=== PATIENT | female | born 1980 | race Caucasian/White ===

== ENCOUNTER 2019-11-07 18:26 | Emergency (ER) | payer SELFPAY ==
[~2019-11-07] VITALS: Ht 167.6 cm; Wt 49.9 kg
[2019-11-07] MEDS ORDERED: CALCIUM CHLOR(10%) 100MG/ML 10ML SYRINGE IV ONE (18:27)
[2019-11-07] MEDS ORDERED: ATROPINE SULF 1 MG/10ml SYR IV ONE (18:27)
[2019-11-07] MEDS ORDERED: DEXTROSE (50%) 50ML SYRG IV ONE (18:27)
[2019-11-07] MEDS ORDERED: EPINEPHrine HCL 1 MG/10 ML SYRG IV ONE (18:27)
[2019-11-07] MEDS ORDERED: NALOXONE HCL 1MG/ML 2ML SYRINGE IV ONE (18:27)
[2019-11-07] MEDS ORDERED: SODIUM BICARBONATE 8.4% INJ 50ML SYRINGE IV ONE (18:27)
[2019-11-07] MEDS ORDERED: LORazepam 2MG/ML-1ML VIAL IV ONE (18:45)
[2019-11-07] MEDS ORDERED: THIAMINE INJ 100 MG in SODIUM CHLORIDE 0.9% 1,000 ML IV ONE (18:45)
[2019-11-07 19:21] LABS: Basophils # (auto) 0 uL; Basophils % (auto) 0.1 % (0.0-2.0); Eosinophils # (auto) 0 uL; Eosinophils % (auto) 0.3 % (0.0-7.0); Hematocrit 49.2 % (36.0-46.0); Hemoglobin 15.5 g/dL (12.2-16.2); Lymphocytes # (auto) 0.4 uL; Lymphocytes % (auto) 17.1 % (10.0-50.0); Mean Corpuscular Hemoglobin 29.9 pg (28.0-32.0); Mean Corpuscular Hgb Conc. 31.4 g/dL (32.0-36.0); Monocytes # (auto) 0 uL; Monocytes % (auto) 1.1 % (0.0-12.0); Neutrophils # (auto) 2.1 uL; Neutrophils % (auto) 81.4 % (37.0-80.0); Nucleated Red Blood Cells % 0.3 %; Platelet Count (auto) 136 10^3/uL (140-450); Red Blood Cells 5.17 10^6/uL (4.0-5.20); Red Cell Distribution Width 14.9 % (11.8-14.3); White Blood Cell 2.5 10^3/uL (4.4-10.8)
[2019-11-07 19:51] LABS: Albumin 2.6 g/dL (3.4-5.0); BUN/Creatinine Ratio 11.7; Potassium 3.8 mmol/L (3.5-5.1)
[2019-11-07 19:54] LABS: Bilirubin, Total 0.6 mg/dL (0.2-1.0); Total Protein 6.2 g/dL (6.4-8.2)
[2019-11-07] MEDS ORDERED: NALOXONE HCL 0.4 MG/ML VIAL ONE (20:08)
[2019-11-07] MEDS ORDERED: DEXTROSE 50% SYRINGE 50 ML IV ONE ×2 (20:22→23:44)
[2019-11-07] MEDS ORDERED: MIDAZOLAM DRIP 50 mg/50mL 50 ML IV ONE (20:30)
[2019-11-07 20:35] VITALS: BP 103/74
--- NOTE | 2019-11-07 20:35 | NUR ---
Respiratory note: Pt intubated by Dr. Yovani Cr. placed on vent v15, vent connected to red outlet and o2 source. Alarms are set and audible. Ambu bag and mask at bedside. Bilateral chest rise seen and positive color change on co2 detector visualized. ETT secured at 24cm at the lip via holister. Bs are fine course bilateral sxd for thin clear/blood tinged sputum sample was obtained and sent to lab at this time. Pt has temp of 101.1f. Will continue to monitor.
[2019-11-07] MEDS ORDERED: VANCOMYCIN PER PHARMACY 0 MG IV SCH (21:15)
[2019-11-07] MEDS ORDERED: PIPERACILLIN-TAZOB 3.375GM 100 ML IV ONE (21:15)
[2019-11-07 21:21] LABS: Basophils # (auto) 0 uL; Eosinophils # (auto) 0 uL; Eosinophils % (auto) 0.4 % (0.0-7.0); Lymphocytes # (auto) 1.3 uL; Monocytes # (auto) 0.1 uL; Nucleated Red Blood Cells % 0.6 %; White Blood Cell 2.4 10^3/uL (4.4-10.8)
[2019-11-07 21:23] LABS: Basophils % (auto) 1.1 % (0.0-2.0); Hematocrit 36.2 % (36.0-46.0); Lymphocytes % (auto) 51.6 % (10.0-50.0); Mean Corpuscular Hemoglobin 30.3 pg (28.0-32.0); Mean Corpuscular Hgb Conc. 30.4 g/dL (32.0-36.0); Mean Corpuscular Volume 99.6 fL (80.0-100.0); Neutrophils # (auto) 1.1 uL; Neutrophils % (auto) 43.9 % (37.0-80.0); Platelet Count (auto) 71 10^3/uL (140-450); Red Blood Cells 3.63 10^6/uL (4.0-5.20)
[2019-11-07 21:39] LABS: Albumin 1.5 g/dL (3.4-5.0); Magnesium 2.1 mg/dL (1.6-2.6); Potassium 3.9 mmol/L (3.5-5.1)
[2019-11-07 21:42] LABS: Bilirubin, Total 0.4 mg/dL (0.2-1.0); Total Protein 3.6 g/dL (6.4-8.2)
[2019-11-07] MEDS ORDERED: VANCOMYCIN 1GM/250ML 250 ML IV ONE ×2 (21:47→22:15)
[2019-11-07 21:50] LABS: Lactic Acid w/Reflex 14.4 mmol/L (0.4-2.0)
[2019-11-07] MEDS ORDERED: SODIUM BICARBONATE 8.4% INJ 50ML SYRINGE ONE (21:51)
[2019-11-07] MEDS ORDERED: SODIUM BICARBONATE 50ML VIAL 50 ML in SOD CHL 0.45% 1,000 ML IV ONE (22:00)
[2019-11-07] MEDS ORDERED: SODIUM BICARBONATE 8.4 % INJ 50ML VIAL IV ONE (22:00)
[2019-11-07] MEDS ORDERED: NOREPINEPHRINE 8 MG/250ML KIT 250 ML IV ONE (22:14)
[2019-11-07] MEDS ORDERED: EPINEPHrine HCL 250 ML IV ONE (22:31)
[2019-11-07 23:17] LABS: Alcohol, Urine < 3.0 mg/dL (0-5); Amphetamine Screen, Urine POSITIVE (NEGATIVE); Barbiturate Scree,Urine NEGATIVE (NEGATIVE); Benzodiazephine Screen, Urine NEGATIVE (NEGATIVE); Cannabinoid Screen, Urine NEGATIVE (NEGATIVE); Cocaine Screen, Urine NEGATIVE (NEGATIVE); Opiate Scree,Urine NEGATIVE (NEGATIVE); Phencyclidine Screen, Urine NEGATIVE (NEGATIVE)
[2019-11-07 23:27] LABS: Urine Amorphous Crystal MANY /hpf (None Seen); Urine Bacteria FEW /hpf (None Seen); Urine Blood 3+ /uL (Negative); Urine Hyaline Cast MANY /lpf (0 - 2); Urine Mucus FEW (None Seen); Urine Specific Gravity 1.009 (1.001-1.035); Urine WBC 8 /hpf (0 - 5)
[2019-11-07] MEDS ORDERED: NOREPINEPHRINE 8 MG/250ML KIT 250 ML IV SCH (23:31)
[2019-11-07] MEDS ORDERED: EPINEPHrine HCL 250 ML IV SCH (23:31)
[2019-11-07] MEDS ORDERED: NALOXONE HCL 1MG/ML 2ML SYRINGE ONE (23:35)
[2019-11-07 23:52] VITALS: BP 96/63
[2019-11-08 00:12] LABS: INR 3.18 (0.9-1.15)
[2019-11-08 00:16] LABS: Partial Thromboplastin Time > 139.0 sec (23.64-32.05)
[2019-11-08] MEDS ORDERED: MIDAZOLAM DRIP 50 mg/50mL 50 ML IV SCH (00:25)
[2019-11-08] MEDS ORDERED: NALOXONE HCL 0.4 MG/ML VIAL IM ONE (00:30)
[2019-11-08] MEDS ORDERED: SODIUM CHLORIDE 0.9% 1,500 ML IV ONE (01:30)
== END 2019-11-08 03:06 | disposition expired ==
LOC: ER 18:26 → EDBD 18:26 → ER 11-08 03:06
DX: I46.9 Cardiac arrest, cause unspecified (principal); A41.9 Sepsis, unspecified organism; E87.2 Acidosis; J96.90 Respiratory failure, unspecified, unspecified whether with hypoxia or hypercapnia; T40.601A Poisoning by unspecified narcotics, accidental (unintentional), initial encounter; Y92.9 Unspecified place or not applicable
CPT/HCPCS: 31500; 36415; 36600; 70450; 71045; 71250; 74176; 80053; 80307; 81001; 82805; 83605; 83735; 83880; 84443; 84484; 85025; 85379; 85610; 85730; 87040; 87070; 87077; 87186; 87205; 93005; 96365; 96366; 96368; 99291; 99292; J0171; J2250; J2310; J2543; J3370; J3411; J7030; J7042